=== PATIENT | female | born 1960 | race African-American/Black ===

== ENCOUNTER 2021-06-01 05:52 | Emergency (ER) | payer SELFPAY ==
[~2021-06-01] VITALS: Ht 149.9 cm; Wt 63.5 kg
[~2021-06-01 05:52] MED LIST: ATEN1TAB38; TRIA25CA
[2021-06-01] MEDS ORDERED: ATEN-60 PO (07:00)
[2021-06-01 07:19] VITALS: BP 155/91
== END 2021-06-01 07:23 | disposition home or self-care (01) ==
LOC: ER 05:52
DX: I10 Essential (primary) hypertension (principal); Z90.710 Acquired absence of both cervix and uterus
CPT/HCPCS: 71045; 93005

== ENCOUNTER 2023-08-04 23:00 | Emergency (ER) | payer MEDICAID ==
[~2023-08-04] VITALS: Ht 149.9 cm; Wt 66.0 kg
[~2023-08-04 23:00] MED LIST changes: +ATEN-60 PO
[2023-08-05] MEDS ORDERED: cloNIDine HCL 0.1 MG TAB PO ONE (00:45)
[2023-08-05 00:59] LABS: Basophils # (auto) 0.1 10 ^3/uL (0-0.2); Basophils % (auto) 0.9 % (0.0-2.0); Eosinophils # (auto) 0.1 10 ^3/uL (0-0.8); Eosinophils % (auto) 1.9 % (0.0-7.0); Hematocrit 38.5 % (36.0-46.0); Hemoglobin 12.7 g/dL (12.2-16.2); Lymphocytes # (auto) 1.8 10 ^3/uL (0.4-5.4); Lymphocytes % (auto) 23.6 % (10.0-50.0); Mean Corpuscular Hemoglobin 27.4 pg (28.0-32.0); Mean Corpuscular Hgb Conc. 33.1 g/dL (32.0-36.0); Mean Corpuscular Volume 82.9 fL (80.0-100.0); Monocytes # (auto) 0.7 10 ^3/uL (0-1.3); Monocytes % (auto) 9.1 % (0.0-12.0); Neutrophils % (auto) 64.5 % (37.0-80.0); Nucleated Red Blood Cells % 0.1 %; Red Blood Cells 4.64 10^6/uL (4.0-5.20); Red Cell Distribution Width 14.8 % (11.8-14.3); White Blood Cell 7.8 10^3/uL (4.4-10.8)
[2023-08-05 01:12] LABS: Alanine Aminotransferase 19 U/L (7-40); Albumin 4.9 g/dL (3.2-4.8); Alkaline Phosphatase 68 U/L (46-116); Anion Gap 7 (5-15); Aspartate Aminotransferase 25 U/L (13-40); Blood Urea Nitrogen 8 mg/dL (9-23); Calcium 10.3 mg/dL (8.7-10.4); Carbon Dioxide 29 mmol/L (20-30); Chloride 103 mmol/L (98-107); Glucose 110 mg/dL (74-106); Potassium 3.6 mmol/L (3.5-5.1); Sodium 139 mmol/L (136-145)
[2023-08-05 01:13] LABS: Bilirubin, Total 0.5 mg/dL (0.2-1.0)
[2023-08-05 01:17] LABS: Partial Thromboplastin Time 26.5 SEC (24.5-34.5); Prothrombin Time 10.5 sec (9.3-11.8)
[2023-08-05] MEDS ORDERED: hydroCHLOROthiazide 25 MG TAB PO ONE (02:30)
[2023-08-05] MEDS ORDERED: ACETAMINOPHEN 500 MG TAB PO ONE (02:30)
[2023-08-05] MEDS ORDERED: LORazepam 0.5 MG TAB PO ONE (02:30)
[2023-08-05 03:55] VITALS: BP 112/60
[2023-08-05 04:00] VITALS: PULSE 69; RESP 20; O2SAT 97
== END 2023-08-05 05:33 | disposition home or self-care (01) ==
LOC: ER 23:00
DX: I10 Essential (primary) hypertension (principal); R51.9 Headache, unspecified; R42 Dizziness and giddiness; R07.9 Chest pain, unspecified; E07.9 Disorder of thyroid, unspecified; E78.5 Hyperlipidemia, unspecified; F41.9 Anxiety disorder, unspecified; Z90.710 Acquired absence of both cervix and uterus
CPT/HCPCS: 36415; 70450; 71045; 80053; 83735; 84484; 85025; 85610; 85730

== ENCOUNTER 2023-12-08 22:47 | Emergency (ER) | payer SELFPAY ==
[~2023-12-08] VITALS: Ht 149.9 cm; Wt 65.4 kg
[2023-12-08 23:03] LABS: Urine WBC None Seen /hpf (0 - 5)
[2023-12-08 23:08] LABS: Urine Bacteria NONE SEEN /hpf (None Seen); Urine Blood Negative /uL (Negative); Urine Clarity Clear (Clear); Urine Color Colorless (Yellow); Urine Protein, UAD Negative (Negative); Urine Specific Gravity 1.001 (1.001-1.035); Urine Urobilinogen Normal (Negative)
[2023-12-08] MEDS: cloNIDine HCL 0.1 MG TAB PO ONE (23:20)
[2023-12-08 23:59] LABS: Basophils # (auto) 0 10 ^3/uL (0-0.2); Basophils % (auto) 0.6 % (0.0-2.0); Eosinophils # (auto) 0.1 10 ^3/uL (0-0.8); Eosinophils % (auto) 1.8 % (0.0-7.0); Hematocrit 36.7 % (36.0-46.0); Hemoglobin 11.9 g/dL (12.2-16.2); Lymphocytes # (auto) 2.9 10 ^3/uL (0.4-5.4); Lymphocytes % (auto) 40.2 % (10.0-50.0); Mean Corpuscular Hemoglobin 26.6 pg (28.0-32.0); Mean Corpuscular Hgb Conc. 32.4 g/dL (32.0-36.0); Mean Corpuscular Volume 82.3 fL (80.0-100.0); Monocytes # (auto) 0.7 10 ^3/uL (0-1.3); Monocytes % (auto) 10.3 % (0.0-12.0); Neutrophils # (auto) 3.4 10 ^3/uL (1.6-8.6); Neutrophils % (auto) 47.1 % (37.0-80.0); Red Blood Cells 4.46 10^6/uL (4.0-5.20); Red Cell Distribution Width 14.8 % (11.8-14.3); White Blood Cell 7.2 10^3/uL (4.4-10.8)
[2023-12-09 00:15] LABS: Alanine Aminotransferase 16 U/L (7-40); Albumin 4.3 g/dL (3.2-4.8); Alkaline Phosphatase 62 U/L (46-116); Anion Gap 7 (5-15); Aspartate Aminotransferase 25 U/L (13-40); BUN/Creatinine Ratio 8.8 (10.0-20.0); Blood Urea Nitrogen 9 mg/dL (9-23); Calcium 9.7 mg/dL (8.7-10.4); Carbon Dioxide 27 mmol/L (20-30); Chloride 105 mmol/L (98-107); Glucose 91 mg/dL (74-106); Potassium 3.2 mmol/L (3.5-5.1); Sodium 139 mmol/L (136-145)
[2023-12-09 00:16] LABS: Bilirubin, Total 0.3 mg/dL (0.2-1.0); Total Protein 8.2 g/dL (5.7-8.2)
[2023-12-09 00:30] VITALS: BP 110/72; RESP 18; TEMP 98; O2SAT 95
[2023-12-09] MEDS ORDERED: ALBUAER3 IN (01:22)
[2023-12-09 01:27] VITALS: PULSE 84
== END 2023-12-09 03:13 | disposition left against medical advice (07) ==
LOC: ER 22:47
DX: I10 Essential (primary) hypertension (principal); J40 Bronchitis, not specified as acute or chronic; E87.6 Hypokalemia; R07.89 Other chest pain; Z98.890 Other specified postprocedural states; Z79.899 Other long term (current) drug therapy
CPT/HCPCS: 36415; 71045; 80053; 81001; 83880; 84484; 85025; 93005